=== PATIENT | female | born 1985 | race Caucasian/White ===

== ENCOUNTER 2018-04-24 11:24 | Emergency (ER) | payer OTHER ==
[2018-04-24 11:29] VITALS: BMI 27.3
[2018-04-24] MEDS ORDERED: ACETAMINOPHEN 1000 MG/100 ML VIAL (NON FORMULARY) IVPB ONE (12:33)
[2018-04-24] MEDS ORDERED: ACETAMINOPHEN INJECTION 100 ML IVPB ONE (12:46)
--- NOTE | 2018-04-24 12:48 | PDOC ---
History of Present Illness - General Chief Complaint: Pain Stated Complaint: PAIN ON THE LEFT SIDE FOR A WEEK Time Seen by Provider: 04/24/18 11:48 - History of Present Illness Initial Comments: 04/24/18 12:43 33 yo F w a hx of kidney stones, L5/S1 laminectomy is here with 10 days of LLQ abd pain, and Left Flank pain radiating to the groin. She rates the pain as 8 out of 10. She reports frequency on urination as well as occasional pink urine. She took ibuprofen at home yesterday and it improved the pain significantly but not completely. She denies dysuria, hesitancy, or urgency. She denies any recent fevers, chills, or infections. LMP - Apr 11. 3 days duration. Regular menstrual cycles. No intermittent spotting. Past History - Past Medical History Allergies/Adverse Reactions: Allergies Allergy/AdvReac Type Severity Reaction Status Date / Time No Known Allergies Allergy Verified 04/24/18 11:26 Home Medications: Ambulatory Orders Ergocalciferol [Vitamin D2] 50,000 unit PO Q7D@1000 04/24/18 Multivitamin [Poly-Vitamin] 1 each PO DAILY 04/24/18 COPD: No - Suicide/Smoking/Psychosocial Hx Smoking History: Never smoked Information on smoking cessation initiated: No Hx Alcohol Use: No Drug/Substance Use Hx: No Substance Use Type: None Review of Systems - Review of Systems Comments:: 04/24/18 12:50 CONSTITUTIONAL: Absent: fever, chills, diaphoresis, generalized weakness, malaise, loss of appetite HEENT: Absent: rhinorrhea, nasal congestion, throat pain, throat swelling, difficulty swallowing, mouth swelling, ear pain, eye pain, visual Changes CARDIOVASCULAR: Absent: chest pain, syncope, palpitations, irregular heart rate, lightheadedness , peripheral edema RESPIRATORY: Absent: cough, shortness of breath, dyspnea with exertion, orthopnea, wheezing, stridor, hemoptysis GASTROINTESTINAL: Positive: Abdominal pain, nausea Absent: abdominal distension, vomiting, diarrhea, constipation, melena, hematochezia GENITOURINARY: Positive: Frequency, hematuria, flank pain Absent: dysuria, urgency, hesitancy, genital pain MUSCULOSKELETAL: Absent: myalgia, arthralgia, joint swelling SKIN: Absent: rash, itching, pallor HEMATOLOGIC/IMMUNOLOGIC: Absent: easy bleeding, easy bruising, lymphadenopathy, frequent infections ENDOCRINE: Absent: unexplained weight gain, unexplained weight loss, heat intolerance, cold intolerance NEUROLOGIC: Absent: headache, focal weakness or paresthesias, dizziness, unsteady gait, seizure, mental status changes, bladder or bowel incontinence PSYCHIATRIC: Absent: anxiety, depression, suicidal or homicidal ideation, hallucinations. *Physical Exam - Vital Signs Last Vital Signs Temp Pulse Resp BP Pulse Ox 98.0 F 85 18 107/66 100 04/24/18 11:27 04/24/18 11:27 04/24/18 11:27 04/24/18 11:27 04/24/18 11:27 - Physical Exam Comments: 04/24/18 12:53 GENERAL: Well developed, well nourished. Awake and alert. No acute distress. HEENT: Normocephalic, atraumatic. PERRLA, EOMI. No conjunctival pallor. Sclera are non- icteric. Moist mucous membranes. Oropharynx is clear. NECK: Supple. Full ROM. No JVD. No thyromegaly. No lymphadenopathy. CARDIOVASCULAR: Regular rate and rhythm. No murmurs, rubs, or gallops. Distal pulses are 2+ and symmetric. PULMONARY: No evidence of respiratory distress. Lungs clear to auscultation bilaterally. No wheezing, rales or rhonchi. ABDOMINAL: There is TTP in the LLQ. Abdomen is soft and non-distended with no TTP in the other quadrants. No rebound or guarding. No organomegaly. Normoactive bowel sounds. MUSCULOSKELETAL + L sided Tenderness. Normal range of motion at all joints. No bony deformities or tenderness. EXTREMITIES: No cyanosis. No clubbing. No edema. No calf tenderness. SKIN: Warm and dry. Normal capillary refill. No rashes. No jaundice. NEUROLOGICAL: Alert, awake, appropriate. Cranial nerves 2-12 grossly intact. No deficits to light touch in face, upper extremities and lower extremities. The Left leg is mildly weaker than the right leg. She reports occasional numbness and tingling in the Left leg. Otherwise, no motor deficits in the in face and upper extremities. Normoreflexic in the upper and lower extremities. Normal speech. Gait is normal without ataxia. PSYCHIATRIC: Cooperative. Good eye contact. Appropriate mood and affect. ED Treatment Course - LABORATORY CBC & Chemistry Diagram: 04/24/18 12:38 04/24/18 12:38 - RADIOLOGY Radiology Studies Ordered: Category Date Time Status KIDNEY / RENAL US [US] Stat Ultrasound 04/24/18 12:34 Ordered Medical Decision Making - Medical Decision Making 04/24/18 12:57 33 yo F w a hx of kidney stones, L5/S1 laminectomy is here with 10 days of LLQ abd pain, and Left Flank pain radiating to the groin. + frequency, + hematuria. DD: Renal colic, Uti/Pylo, Sciatica, diverticulitis. Plan: UA/UC, cbc, cmp, hcg, renal US, analgesia, re-assess. Urine negative for blood, LE or nitrite. Renal US showed renal stones. Sending her home with Uro FU. 04/24/18 12:57 04/24/18 13:31 04/24/18 19:08 *DC/Admit/Observation/Transfer Diagnosis at time of Disposition: RLQ abdominal pain, Renal colic on left side - Discharge Dispostion Disposition: HOME Condition at time of disposition: Stable Decision to Admit order: No - Referrals Referrals: Manisha Wheeler MD [Primary Care Provider] - Kieran Keller MD., [Staff Physician] - - Patient Instructions Printed Discharge Instructions: Sciatica (Alternative Therapy), Urinary Tract Infection, Sciatica, Kidney Stones -- Adult, Kidney Infection, DI for Abdominal Pain-Adult, DI for Back Pain With Sciatica Additional Instructions: Please make sure to follow up with your doctor in the next 3 to 5 days to make sure your pain is getting better. Come back to the ER if your pain worsens, you start vomiting, get a bad fever or have any other concerns. Please take ibuprofen (Advil or motrin) or tylenol as needed for pain control. Print Language: KHMER - Post Discharge Activity
--- NOTE | 2018-04-24 12:52 | PDOC ---
Attending Attestation - HPI HPI: 04/24/18 12:53 The patient is a 33 year old female with a significant PMH of kidney stones and L5/S1 laminectomy presenting with left lower quadrant and left flank pain for the past 10 days. Patient states the left flank pain is sharp and radiating to her groin with associated frequency and pink colored urine. Patient reports taking ibuprofen three days ago but states the pain worsened yesterday and has not taken any other meds. LMP was April 11. The patient denies chest pain, shortness of breath, headache and dizziness. Denies fever, chills, nausea, vomit, diarrhea and constipation. Denies dysuria, urgency and hematuria. Allergies: NKA Past surgical history: None reported. Social history: No reported alcohol, drug, or cigarette use. PCP: Dr. Wheeler <Helen Ashton - Last Filed: 04/24/18 12:53> - Resident Resident Name: Pepe Ruiz - ED Attending Attestation I have performed the following: I have examined & evaluated the patient, The case was reviewed & discussed with the resident, I agree w/resident's findings & plan, Exceptions are as noted - Physicial Exam PE: GENERAL: Awake, alert, and fully oriented, in no acute distress. Appears comfortable. HEAD: No signs of trauma EYES: PERRLA, EOMI, sclera anicteric, conjunctiva clear ENT: Auricles normal inspection, hearing grossly normal, nares patent, oropharynx clear without exudates. Moist mucosa NECK: Normal ROM, supple, no lymphadenopathy, JVD, or masses LUNGS: Breath sounds equal, clear to auscultation bilaterally. No wheezes, and no crackles HEART: Regular rate and rhythm, normal S1 and S2, no murmurs, rubs or gallops ABDOMEN: Soft, +LLQ tenderness, +L CVAT. Normoactive bowel sounds. +Guarding, no rebound. No masses EXTREMITIES: Normal range of motion, no edema. No clubbing or cyanosis. No cords, erythema, or tenderness NEUROLOGICAL: Cranial nerves II through XII grossly intact. Normal speech, normal gait SKIN: Warm, Dry, normal turgor, no rashes or lesions noted. - Medical Decision Making Pt with mild hematuria (reported at home), L CVAT and LLQ tenderness. Will obtain sono to r/o nephrolithiasis. UA to r/o infection. <Gabriela Almonte - Last Filed: 04/24/18 12:59>
[2018-04-24 13:12] LABS: EOS % 0.9 % (0-4.5); HEMATOCRIT 40.1 % (32.4-45.2); HEMOGLOBIN 13.8 GM/dL (10.7-15.3); LYMPH % 26.3 % (8-40); MCH 30.7 pg (25.7-33.7); MCHC 34.4 g/dl (32.0-36.0); MEAN CELL VOLUME 89.2 fl (80-96); MEAN PLT VOLUME 8.5 fl (7.5-11.1); MONO % 8.9 % (3.8-10.2); NEUT % 62.9 % (42.8-82.8); PLATELET COUNT 269 K/MM3 (134-434); WHITE BLOOD COUNT 7.3 K/mm3 (4.0-10.0)
[2018-04-24 13:14] LABS: URINE APPEARANCE CLEAR; URINE BILIRUBIN NEGATIVE (<2.0 mg/dL); URINE COLOR LTYELLOW; URINE GLUCOSE (UA) NEGATIVE (NEGATIVE); URINE KETONE NEGATIVE (NEGATIVE); URINE LEUK ESTERASE NEGATIVE (NEGATIVE); URINE NITRITE NEGATIVE (NEGATIVE); URINE PROTEIN NEGATIVE (NEGATIVE); URINE UROBILINOGEN NEGATIVE mg/dL (0.2-1.0)
[2018-04-24 13:38] LABS: ANION GAP 7 (8-16); BLOOD UREA NITROGEN 11 mg/dL (7-18); CALCIUM 9.1 mg/dL (8.5-10.1); CHLORIDE 103 mmol/L (98-107); CO2 26 mmol/L (21-32); CREATININE 0.6 mg/dL (0.55-1.02); GLUCOSE,RANDOM 87 mg/dL (74-106); POTASSIUM 4.2 mmol/L (3.5-5.1); SGOT/AST 59 U/L (15-37); SGPT/ALT 72 U/L (12-78); SODIUM 136 mmol/L (136-145)
[2018-04-24 13:43] LABS: ALK PHOS 125 U/L (45-117); BILIRUBIN,TOTAL 0.2 mg/dL (0.2-1.0); TOT PROT 7.7 g/dl (6.4-8.2)
[2018-04-24] MEDS ORDERED: KETOROLAC TROMETHAMINE 30 MG/1 ML VIAL IM ONE (13:45)
[2018-04-24] MEDS ORDERED: KETOROLAC TROMETHAMINE 30 MG/1 ML VIAL ONE (14:04)
[2018-04-24] MEDS ORDERED: KETOROLAC TROMETHAMINE 30 MG/1 ML VIAL IVPUSH ONE (14:06)
[2018-04-24 17:12] VITALS: BP 98/68; PULSE 73; TEMP 98.5
[2018-04-24] MEDS ORDERED: KETOROLAC TROMETHAMINE 15 MG/ML VIAL IVPUSH ONE (17:49)
== END 2018-04-24 20:05 | disposition home or self-care (01) ==
LOC: JER 11:24
PROC: 3E033NZ Introduction of Analgesics, Hypnotics, Sedatives into Peripheral Vein, Percutaneous Approach (ICD-10-PCS; principal; 2018-04-24)
PROC: 3E0333Z Introduction of Anti-inflammatory into Peripheral Vein, Percutaneous Approach (ICD-10-PCS; 2018-04-24)
DX: N20.0 Calculus of kidney (principal); Z87.442 Personal history of urinary calculi
CPT/HCPCS: 36415; 76775-TC; 80053; 81003; 84702; 85025; 87086; 96374; 96375; 99285-25; J0131